=== PATIENT | male | born 1960 | race Caucasian/White ===

== ENCOUNTER 2019-03-10 09:49 | Day surgery (SDC) | payer OTHER ==
[2019-03-10 10:53] LABS: ALANINE AMINOTRANSFERASE 23 IU/L (13-69); ALBUMIN 4.5 g/dl (3.3-4.9); ALKALINE PHOSPHATASE 52 IU/L (42-121); ANION GAP 10 (5-13); ASPARTATE AMINO TRANSFERASE 25 IU/L (15-46); BILIRUBIN,INDIRECT 0.6 mg/dl (0-1.1); BILIRUBIN,TOTAL 0.6 mg/dl (0.2-1.3); CALCIUM 9.5 mg/dl (8.4-10.2); CARBON DIOXIDE 25 mmol/L (21-31); CHLORIDE 106 mmol/L (97-110); CREATININE 0.76 mg/dl (0.61-1.24); Estimated GFR > 60 mL/min (>60); GLUCOSE 115 mg/dl (70-220); TOTAL PROTEIN 7.3 g/dl (6.1-8.1)
[2019-03-10 10:55] LABS: BLOOD UREA NITROGEN 25 mg/dl (7-20)
[2019-03-10 10:56] LABS: POTASSIUM 4.6 mmol/L (3.5-5.1); SODIUM 141 mmol/L (135-144)
[2019-03-10] MEDS ORDERED: BUPIVACAINE 0.25%/EPI (SDV) 30 ML INJ (12:02)
[2019-03-10] MEDS: BUPIVACAINE 0.25%/EPI (SDV) 30 ML INJ INJ (12:03)
[2019-03-10] MEDS ORDERED: PROPOFOL 20 ML (12:58)
[2019-03-10] MEDS ORDERED: ROCURONIUM 50 MG INJ (12:58)
[2019-03-10] MEDS ORDERED: MIDAZOLAM 1 MG/ML 2 ML INJ ×2 (12:58→14:39)
[2019-03-10] MEDS ORDERED: LIDOCAINE 1% (MDV) 20 ML INJ (12:59)
[2019-03-10] MEDS ORDERED: ROPIVACAINE 0.5 % 30 ML VIAL (13:04)
[2019-03-10] MEDS ORDERED: CEFAZOLIN 1 GM INJ (13:20)
[2019-03-10] MEDS ORDERED: ONDANSETRON 4 MG INJ (14:21)
[2019-03-10] MEDS ORDERED: SUGAMMADEX SODIUM 200 MG/2 ML VIAL IV (14:29)
[2019-03-10] MEDS ORDERED: KETOROLAC 30 MG INJ (14:30)
[2019-03-10] MEDS ORDERED: HYDROmorphONE 1 MG/5 ML IV SYRINGE IV ×2 (15:00)
[2019-03-10] MEDS ORDERED: HYDROCODONE/APAP (5/325) TAB PO (15:00)
[2019-03-10] MEDS ORDERED: morphine 2 MG INJ IV (15:00)
[2019-03-10] MEDS ORDERED: KETOROLAC 30 MG INJ IV (15:00)
[2019-03-10] MEDS ORDERED: IBUPROFEN 600 MG TAB PO (15:00)
[2019-03-10] MEDS ORDERED: ONDANSETRON 4 MG INJ IV (15:00)
[2019-03-10] MEDS ORDERED: OXYCODONE/ACETAMINOPHEN (5/325) TAB PO ×2 (15:00)
[2019-03-10] MEDS: HYDROCODONE/APAP (5/325) TAB PO (16:41)
== END 2019-03-10 17:48 | disposition home or self-care (01) ==
LOC: SDS 09:49
DX: K40.91 Unilateral inguinal hernia, without obstruction or gangrene, recurrent (principal); N50.89 Other specified disorders of the male genital organs; F41.9 Anxiety disorder, unspecified; Z85.028 Personal history of other malignant neoplasm of stomach
CPT/HCPCS: 49520; 80053